=== PATIENT | male | born 1980 | race Hispanic/Latino ===

== ENCOUNTER 2018-05-31 06:59 | Day surgery (SDC) | payer OTHER ==
--- NOTE | 2018-05-27 16:35 | RAD REPORT ---
EXAM DESCRIPTION: RAD - Chest Pa And Lat (2 Views) - 05/27/2018 4:25 pm CLINICAL HISTORY: Preop chest, pending hernia surgery COMPARISON: None. TECHNIQUE: PA and lateral views of the chest were obtained. FINDINGS: The lungs are underinflated. Peripheral mass or consolidation not identified. Failure or v olume overload are not suspected. Patient likely has lung base atelectasis. Lateral view has motion degradation. Heart size is normal and central vasculature is within normal limits. No pleural effusi on or pneumothorax seen. No acute bony finding noted. No aortic abnormality. IMPRESSION: Limited shallow inspiration examination. Acute cardiopulmonary finding is doubtful.
[2018-05-27 16:59] LABS: Absolute Lymphocytes (CBC) 2.2 K/uL (0.7-4.9); Absolute Monocytes 0.9 K/uL (0.1-1.3); Absolute Neutrophil 7.4 K/uL (1.8-8.0); Basophils % 0.7 % (0-1.3); Hematocrit 49.3 % (39.6-49.0); Lymphocytes % 20.9 % (15.3-44.8); MCH 29.3 pg (27.0-35.0); MCV 87.7 fL (80-100); Monocytes % 8.1 % (3.3-12.3); RBC Red Blood Cell Count 5.62 M/uL (4.33-5.43)
[2018-05-27 17:08] LABS: Potassium 3.2 mmol/L (3.5-5.1)
--- NOTE | 2018-05-27 18:34 | EKG ---
Test Date: 2018-05-27 Test Time: 16:16:35 [employer] Architect: MARIA EUGENIA MEASUREMENT RESULTS: Intervals: Rate: 76 AK: 134 QRSD: 84 QT: 372 QTc: 418 [place]: P: 8 AK: 134 QRS: -13 T: 35 INTERPRETIVE STATEMENTS: Normal sinus rhythm Normal ECG No previous ECG available for comparison Electronically Signed On 05-27-18 18:34:19 CDT by Leander Lin
[2018-05-31] MEDS ORDERED: NA CHLORIDE 0.9% 1,000 ML ONE ×2 (07:13→09:53)
[2018-05-31] MEDS ORDERED: CEFAZOLIN/SWI 1gm 1 GM/10 ML SYR ONE (07:13)
[2018-05-31] MEDS ORDERED: BUPIVACAINE 0.5% PF 10 ML VIAL ONE (08:08)
[2018-05-31] MEDS ORDERED: MIDAZOLAM HCL 2 MG/2 ML INJ ONE (08:20)
[2018-05-31] MEDS ORDERED: PROPOFOL 200 MG/20 ML VIAL IV ONE (08:20)
[2018-05-31] MEDS ORDERED: LIDOCAINE 1% MPF 5 ML VIAL ONE (08:20)
[2018-05-31] MEDS ORDERED: FENTANYL CITR 100 MCG/2 ML ONE ×2 (08:20→09:07)
[2018-05-31] MEDS ORDERED: METOCLOPRAMIDE 10 MG/2mL INJ ONE (08:31)
[2018-05-31] MEDS ORDERED: ROCURONIUM 50 MG/5 ML VIAL IV ONE (09:01)
[2018-05-31] MEDS ORDERED: KETOROLAC 30 MG/ML INJ ONE (09:36)
--- NOTE | 2018-05-31 09:45 | P.BOP ---
Preoperative diagnosis: incarcerated tender umbilical hernia Postoperative diagnosis: same Primary procedure: Open repair of incarcerated tender umbilical hernia Aircraft Design Engineer: Edelmira Chaney) Estimated blood loss: <10cc Specimen: mass Findings: incarcerated omentum Anesthesia: General Transferred to: Recovery Room Condition: Good
[2018-05-31] MEDS ORDERED: Ringers Lactate 0 ML IV ONE (09:46)
[2018-05-31] MEDS: MEPERIDINE HCL 50 MG/ML AMP ONE ×2 (10:02→10:07)
[2018-05-31] MEDS ORDERED: CODEINE 30MG/APAP 300MG TAB ONE (11:18)
--- NOTE | 2018-06-05 20:48 | OP ---
Date of Procedure: 05/31/2018 Surgeon: Kalin Khan MD Senior [employer] Programmer: Edelmira Chaney. Preoperative Diagnosis: Incarcerated tender umbilical hernia. Postoperative Diagnosis: Incarcerated tender umbilical hernia. Procedures: Open repair of incarcerated tender umbilical hernia. Specimen: Hernia sac. Findings: Incarcerated omentum. Anesthesia: General plus local. Indications: This is a case of a male, who comes to us with incarcerated tender umbilical hernia. F ully explained the benefits, alternatives, and risks of repair which include, but not limited to infe ction, bleeding, damage to adjacent structures, anesthesia complication, recurrence, PR, even . He also understands this may not relieve any symptoms. He might need more than one surgical interve ntion. He understood, signed a consent. The patient explained the pros and cons of mesh placements. He signed a consent. Description Of Procedure: The patient was brought to the operating room, placed in supine position. Anesthesia was done without complication. Abdominal area was prepped and draped in a sterile fashio n. Marcaine 0.5% injected for local anesthetic, followed by sharp incision of skin in the infraumbil ical region. Incision was carried down to subcutaneous tissue. We noticed a hernia sac, disconnecte d from the umbilical skin. The hernia sac once wide open, we noticed to have incarcerated omentum th at was carefully evaluated. Once omentum was evaluated and then removed from the umbilical skin, patt e adhesions that were holding to it, we proceeded then to reduce the omentum under good visualization making sure there was no bleeding and the hernia sac was removed and the fascia was approximated wit h Prolene interrupted in a [id number] fashion multiple ones. Subcutaneous incision was closed w ith 3-0 chromic and skin was approximated. Sponge count and instrument counts were correct. The pat ient tolerated the procedure well. The patient was sent to recovery room in stable condition. OLY/MARSHA Voice ID: [id number] Report ID: [id number]
--- NOTE | 2018-06-05 20:48 | DS ---
Date of Discharge: 05/31/2018 Diagnosis: Incarcerated tender umbilical hernia. Procedures: Open repair of an incarcerated tender umbilical hernia. Disposition: Home. Activity: As tolerated. No heavy lifting Followup: Follow up in my office in 1 week. Call for appointment [phone]. Keep area dry for 48 ho urs, then may shower. OLY/MARSHA Voice ID: [id number] Report ID: [id number]
== END 2018-05-31 12:00 | disposition home or self-care (01) ==
LOC: OR 06:59
PROVIDERS: ATTEND Surgery
PROC: 0WQF0ZZ Repair Abdominal Wall, Open Approach (ICD-10-PCS; principal; 2018-05-31 08:30)
DX: K42.0 Umbilical hernia with obstruction, without gangrene (principal); E11.9 Type 2 diabetes mellitus without complications; I10 Essential (primary) hypertension; E66.9 Obesity, unspecified; Z68.39 Body mass index [BMI] 39.0-39.9, adult; Z83.3 Family history of diabetes mellitus; Z82.49 Family history of ischemic heart disease and other diseases of the circulatory system; Z82.3 Family history of stroke
CPT/HCPCS: 36415; 71046; 80048; 82962; 85025; 88302; 93005; J0690; J2175; J2250; J2765; J3010; J7030